=== PATIENT | male | born 1955 | race Caucasian/White ===

== ENCOUNTER → 2021-05-05 09:44 | Outpatient (CLI) | payer MEDICARE, SELFPAY | PROVIDERS: Visit Provider Urology | DX: R97.20 Elevated prostate specific antigen [PSA] (principal); Z01.812 Encounter for preprocedural laboratory examination; Z11.52 Encounter for screening for COVID-19 | CPT/HCPCS: C9803; U0003; U0005 ==

== ENCOUNTER 2021-05-08 07:25 | Day surgery (SDC) | payer MEDICARE, SELFPAY ==
[2021-04-28 10:22] VITALS: BMI 22.3
[2021-05-08 07:51] VITALS: BP 128/80; PULSE 66; RESP 18; TEMP 36.4; O2SAT 98
--- NOTE | 2021-05-08 08:49 | HMH.ANESCL ---
[facility] Anesthesia Checklist - Patient Identification Patient Identification: Arm Band - Structural Data Admitted From: Home Planned Operative Procedure/s: Prostate bx Consent for Planned Operative Procedure(s) Verified: Yes - NPO Status Verified Time NPO: 00:00 - Additional verifications Anesthesia Reactions: No Hx Blood Transfusions: Yes (1973) Blood Transfusion Reaction: No - Airway Assessment C-Spine Mobility Assessed: Yes TMJ Mobility Assessed: Yes Dentition: Good Dentition - Neurological Assessment Level of Consciousness: Awake Hx Seizures: No Numbness or tingling in extremities: No - Anesthesia Plan Anesthesia Risk discussed: Yes Anesthesia Plan: Verified ASA Class: II Anesthesia Type: MAC [facility] History I have reviewed the patient's past medical history: Yes Medical History: Reports:: Asthma, Hyperlipidemia Denies:: Cancer, Diabetes Mellitus Type 1, Diabetes Mellitus Type 2, Internal Pacemaker, MRSA, Seizures *Have you ever received a pneumonia vaccine?: No *Have you received a flu vaccine this season?: No Other Medical History: Reports: Anemia, Arthritis, Hypothyroidism, Thyroid Disease. Denies: Blood Transfusion Reaction Anesthesia experience/problems:: None Other Surgeries: Yes: No Previous Surgery, Colonoscopy. No: Pacemaker Amputation: No Fractures: No - *Social History Last grade of school completed: Advanced degree Smoking Status: Never smoker Alcohol Intake: never Substance Use Type: denies use *Occupational Status:: employed Housing: house Household Members: spouse *Travel in the last 8 weeks: Inside the [place] Family Hx:: No significant family history
[2021-05-08 10:22] VITALS: BP 112/58; PULSE 72; RESP 18; TEMP 36.1; O2SAT 97
[2021-05-08 10:35] VITALS: BP 103/60; PULSE 68; RESP 18; O2SAT 95
[2021-05-08 10:50] VITALS: BP 115/63; PULSE 68; RESP 18; O2SAT 98
[2021-05-08 11:05] VITALS: BP 136/86; PULSE 51; RESP 18; O2SAT 99
[2021-05-08 11:20] VITALS: BP 132/60; PULSE 52; RESP 18; TEMP 36.3; O2SAT 98
--- NOTE | 2021-05-08 16:44 | HMH.OPNOTE ---
Date of procedure: 05/08/21 Pre-op Diagnosis:: Elevated PSA Post-op Diagnosis:: Elevated PSA Procedure performed:: Transrectal ultrasound with prostate biopsies Surgeon:: Aristeo Tapia MD FILM PROCESSING SUPERVISOR:: Sophy Stinson Anesthesia: MAC Estimated blood loss (mL): 5 Clinical Note:: 65-year-old white male with recent PSA elevation to 9. He presents for prostate biopsy today. He did perform preoperative oral antibiotics and enema. Operative findings:: Prostate was measured at 17 cm?. There is no evidence of hypoechoic or hyperechoic lesions. No biopsies were obtained. Operative note:: Patient taken to the operating room after informed consent was obtained. On the stretcher monitored anesthesia care was administered. Patient was placed into the left lateral decubitus position. He had performed preoperative oral antibiotics and enema. The transrectal ultrasound probe was placed into the rectum and the prostate was visualized easily. It was measured at 16.75 cm?. Local anesthesia was placed into each neurovascular bundle. There was no evidence of hypoechoic or hyperechoic lesions. 12 biopsies then obtained in the systematic fashion. There was a little bleeding from the rectum after the probe was removed. A tampon was placed into the rectum tamponade purposes. Patient tolerated procedure well. Condition: stable Disposition: same day Specimens:: Prostate biopsy x12 Complications:: None
== END 2021-05-08 11:20 | disposition home or self-care (01) ==
LOC: OR 07:28
PROVIDERS: PCP Family Medicine; Visit Provider Urology
DX: R97.20 Elevated prostate specific antigen [PSA] (principal); J45.909 Unspecified asthma, uncomplicated; E78.5 Hyperlipidemia, unspecified; D64.9 Anemia, unspecified; M19.90 Unspecified osteoarthritis, unspecified site; E03.9 Hypothyroidism, unspecified; Z79.899 Other long term (current) drug therapy
CPT/HCPCS: 55700; 88300; 88305; 96374

== ENCOUNTER → 2021-05-26 08:22 | Outpatient (CLI) | payer MEDICARE, SELFPAY ==
--- NOTE | 2021-05-26 08:22 | CT_ITS ---
PROCEDURE INFORMATION: Exam: CT Abdomen And Pelvis Without And With Contrast Exam date and time: 05/26/2021 8:22 AM Age: 65 years old Clinical indication: Condition or disease; Other: Prostrate cancer; Additional info: Prostate cancer TECHNIQUE: Imaging protocol: Computed tomography of the abdomen and pelvis without and with contrast. Radiation optimization: All CT scans at this facility use at least one of these dose optimization techniques: automated exposure control; mA and/or kV adjustment per patient size (includes targeted exams where dose is matched to clinical indication); or iterative reconstruction. Contrast material: ISOVUE; Contrast volume: 75 ml; Contrast route: INTRAVENOUS (IV); COMPARISON: No relevant prior studies available. FINDINGS: Diaphragm: There is a small hiatal hernia. The stomach is otherwise normal in appearance. Liver: The liver is normal in appearance, without evidence of mass or intrahepatic bile duct dilatation. Gallbladder and bile ducts: There are several gallstones in the dependent portion of the gallbladder. Pancreas: The pancreas is normal in appearance, without evidence of mass, cyst, peripancreatic inflammatory change, or pancreatic duct dilatation. Spleen: There are multiple calcified granulomas in the spleen. Adrenal glands: Both adrenal glands are normal in appearance, without evidence of mass or focal abnormality. Kidneys and ureters: Both kidneys are normal in appearance, without evidence of nephrolithiasis or hydronephrosis. Stomach and bowel: The small bowel is normal in appearance, without evidence of wall thickening, perienteric inflammatory change, or small bowel obstruction. The terminal ileum and cecum are within normal limits. Appendix: No evidence of appendicitis. Intraperitoneal space: Unremarkable. No free air. No significant fluid collection. Vasculature: Unremarkable. No abdominal aortic aneurysm. Lymph nodes: Unremarkable. No enlarged lymph nodes. Urinary bladder: Unremarkable as visualized. Reproductive: Unremarkable as visualized. Bones/joints: There is multilevel lumbar spondylosis. Soft tissues: Unremarkable. IMPRESSION: 1. No acute findings. 2. Cholelithiasis, without evidence of acute cholecystitis. 3. Small hiatal hernia.
[2021-05-26 09:09] LABS: Blood Urea Nitrogen 22 mg/dl (9-20); Estimated Glomerular Filt Rate 67 ml/min (>60); GFR (African American) 81 ML/MIN (>60)
== END ==
PROVIDERS: PCP Family Medicine; Visit Provider Urology
DX: C61 Malignant neoplasm of prostate (principal)
CPT/HCPCS: 36415; 74178; 82565; 84520; Q9967

== ENCOUNTER → 2021-06-05 08:40 | Outpatient (CLI) | payer MEDICARE, SELFPAY ==
--- NOTE | 2021-06-05 08:40 | NM_ITS ---
PROCEDURE: NM BONE SCAN WHOLE BODY CLINICAL INDICATION: prostate cancer COMPARISON: No exams were available for comparison FINDINGS: Dose: 26.2 mCi technetium MDP Anterior and posterior images are obtained of the entire skeleton. Degenerative activity is present in the shoulders, wrists, knees, feet and ankles. Increased activity also noted involving the facet region on the left at C5 and C7. No other abnormal areas of activity apparent. IMPRESSION: No convincing evidence of skeletal metastatic disease. Dictated by: Manny Hung MD 06/06/2021 09:04 Manny Hung MD in OV 06/06/2021 09:04
== END ==
PROVIDERS: PCP Family Medicine; Visit Provider Urology
DX: C61 Malignant neoplasm of prostate (principal)
CPT/HCPCS: 78306; A9503

== ENCOUNTER → 2021-06-19 11:45 | Outpatient (CLI) | payer MEDICARE, SELFPAY | PROVIDERS: PCP Family Medicine; Visit Provider Urology | DX: C61 Malignant neoplasm of prostate (principal); Z01.812 Encounter for preprocedural laboratory examination; Z11.52 Encounter for screening for COVID-19; Z12.11 Encounter for screening for malignant neoplasm of colon | CPT/HCPCS: C9803; U0003; U0005 ==

== ENCOUNTER 2021-06-21 07:57 | Day surgery (SDC) | payer MEDICARE, SELFPAY ==
[2021-06-16 09:51] VITALS: BMI 22.3
[2021-06-21 08:28] VITALS: BP 130/84; PULSE 76; RESP 16; TEMP 36.6; O2SAT 100
--- NOTE | 2021-06-21 08:52 | HMH.ANESCL ---
[facility] Anesthesia Checklist - Patient Identification Patient Identification: Arm Band - Structural Data Admitted From: Home Planned Operative Procedure/s: Colonoscopy Consent for Planned Operative Procedure(s) Verified: Yes - NPO Status Verified Time NPO: 05:30 (Prep) - Additional verifications Anesthesia Reactions: No Hx Blood Transfusions: Yes (1973) Blood Transfusion Reaction: No - Airway Assessment C-Spine Mobility Assessed: Yes TMJ Mobility Assessed: Yes Dentition: Good Dentition - Neurological Assessment Level of Consciousness: Awake Hx Seizures: No Numbness or tingling in extremities: No - Anesthesia Plan Anesthesia Risk discussed: Yes Anesthesia Plan: Verified ASA Class: II Anesthesia Type: MAC [facility] History I have reviewed the patient's past medical history: Yes Medical History: Reports:: Asthma, Cancer (prostate), Hyperlipidemia Denies:: Diabetes Mellitus Type 1, Diabetes Mellitus Type 2, Internal Pacemaker, MRSA, Seizures *Have you ever received a pneumonia vaccine?: No *Have you received a flu vaccine this season?: No Other Medical History: Reports: Anemia, Arthritis, Hypothyroidism, Thyroid Disease. Denies: Blood Transfusion Reaction Anesthesia experience/problems:: None Other Surgeries: Yes: No Previous Surgery, Colonoscopy. No: Pacemaker Amputation: No Fractures: No - *Social History Last grade of school completed: Some college Smoking Status: Never smoker Alcohol Intake: never Substance Use Type: denies use *Occupational Status:: employed Housing: house Household Members: spouse *Travel in the last 8 weeks: None Family Hx:: No significant family history
[2021-06-21 09:13] VITALS: O2SAT 97
[2021-06-21 09:33] VITALS: BP 130/80; PULSE 76; RESP 14; TEMP 36.1; O2SAT 96
--- NOTE | 2021-06-21 09:42 | HMH.SCOPE ---
- Procedure: Date: 06/21/21 Patient Date of :: 1955 Procedure Performed:: Colonosocpy Indications:: The patient is a 65 year old male who is here for screening colonoscopy. His last colonoscopy is reported to be approximately 8-9 years ago. No prior history of colon polyps. He has a recent diagnosis of prostate cancer and is to have cyber knife treatment. Performing Provider:: Sven Hernandez MD Referring Provider:: Brant Henderson MD Sedation:: Se As per anesthesia records Procedure:: After placing the patient in the left lateral decubitus position, the colonoscopy was gently inserted into the rectum and under direct visualization advanced to the cecum which was identified by transillumination in the right lower quadrant, identification of the ileocecal valve, appendiceal orifice, and cecal strap. Color, texture, mucosa, and anatomy of the colon were carefully examined with the scope. Findings:: Anal canal: normal Rectum: normal Sigmoid colon: normal without polyps or inflammatory changes Descending colon: normal without polyps or inflammatory changes Splenic flexure: normal Transverse colon: normal without polyps or inflammatory changes Hepatic flexure: normal Ascending colon: normal without polyps or inflammatory changes Cecum: normal Terminal ileum: not visualized Recommendations:: Repeat colonoscopy in 10 years or sooner if clinically indicated Complications:: None Estimated blood obtained (mL): 0
[2021-06-21 09:43] VITALS: BP 126/75; PULSE 62; RESP 16; O2SAT 97
[2021-06-21 09:53] VITALS: BP 116/76; PULSE 75; RESP 18; O2SAT 97
--- NOTE | 2021-06-21 10:13 | SUR.PHASEII ---
Dr. Hernandez in w/ patient at this time
[2021-06-21 10:20] VITALS: BP 119/75; PULSE 72; RESP 18; O2SAT 97
== END 2021-06-21 10:20 | disposition home or self-care (01) ==
LOC: OUTP 07:58
PROVIDERS: PCP Family Medicine; Visit Provider Internal Medicine
PROC: 0DJD8ZZ Inspection of Lower Intestinal Tract, Via Natural or Artificial Opening Endoscopic (ICD-10-PCS; CPT 45378; principal; 2021-06-21 09:00)
DX: Z12.11 Encounter for screening for malignant neoplasm of colon (principal); Z85.46 Personal history of malignant neoplasm of prostate; J45.909 Unspecified asthma, uncomplicated; E78.5 Hyperlipidemia, unspecified; D64.9 Anemia, unspecified; E03.9 Hypothyroidism, unspecified; Z79.899 Other long term (current) drug therapy
CPT/HCPCS: G0121

== ENCOUNTER → 2021-08-02 13:12 | Outpatient (CLI) | payer MEDICARE, SELFPAY | PROVIDERS: Visit Provider Urology | DX: C61 Malignant neoplasm of prostate (principal); Z01.812 Encounter for preprocedural laboratory examination; Z11.52 Encounter for screening for COVID-19 | CPT/HCPCS: C9803; U0003; U0005 ==

== ENCOUNTER 2021-08-04 07:28 | Day surgery (SDC) | payer MEDICARE, SELFPAY ==
[2021-07-31 10:10] VITALS: BMI 22.3
[2021-08-04] VITALS (9 sets, daily range): BP systolic 112–138; BP diastolic 67–89; PULSE 50–89; RESP 16–18; TEMP 36.2–36.6; O2SAT 94–99
--- NOTE | 2021-08-04 09:25 | HMH.ANESCL ---
[facility] Anesthesia Checklist - Patient Identification Patient Identification: Arm Band - Structural Data Admitted From: Home Planned Operative Procedure/s: Transrectal ultrasound Consent for Planned Operative Procedure(s) Verified: Yes - NPO Status Verified Time NPO: 00:00 - Additional verifications Anesthesia Reactions: No Hx Blood Transfusions: Yes (1973) Blood Transfusion Reaction: No - Airway Assessment C-Spine Mobility Assessed: Yes TMJ Mobility Assessed: Yes Dentition: Good Dentition - Neurological Assessment Level of Consciousness: Awake Hx Seizures: No Numbness or tingling in extremities: No - Anesthesia Plan Anesthesia Risk discussed: Yes Anesthesia Plan: Verified ASA Class: II Anesthesia Type: MAC [facility] History I have reviewed the patient's past medical history: Yes Medical History: Reports:: Asthma (Seasonal), Cancer (prostate), Hyperlipidemia Denies:: Diabetes Mellitus Type 1, Diabetes Mellitus Type 2, Internal Pacemaker, MRSA, Seizures *Have you ever received a pneumonia vaccine?: No *Have you received a flu vaccine this season?: No Other Medical History: Reports: Anemia, Arthritis, Hypothyroidism, Thyroid Disease. Denies: Blood Transfusion Reaction Anesthesia experience/problems:: None Other Surgeries: Yes: No Previous Surgery, Colonoscopy. No: Pacemaker Amputation: No Fractures: No - *Social History Last grade of school completed: High school graduate Smoking Status: Never smoker Alcohol Intake: never Substance Use Type: denies use *Occupational Status:: employed Housing: house Household Members: spouse, family *Travel in the last 8 weeks: None Family Hx:: No significant family history
--- NOTE | 2021-08-04 15:29 | P.OP_ITS ---
Date of procedure: 08/04/21 Pre-op Diagnosis:: Prostate cancer Post-op Diagnosis:: Prostate cancer Procedure performed:: Placement of gold seed fiducials with transrectal ultrasound guidance Surgeon:: Aristeo Tapia MD ONLINE ADVERTISING DIRECTOR:: Sophy Stinson Anesthesia: MAC Estimated blood loss (mL): 0 Clinical Note:: 65-year-old white male with recently diagnosed prostate cancer has opted for CyberKnife therapy. He returns today for placement of gold seed fiducial's prior to the CyberKnife. Operative findings:: Prostate easily visualized and seeds placed without difficulty. Operative note:: Patient taken to the operating suite after informed consent was obtained. He had been on preoperative antibiotics. He was placed into the left lateral decubitus position and monitored anesthesia care administered. After adequate analgesia the transrectal ultrasound probe placed into the rectum and the prostate was easily visualized. Local anesthetic was placed into each neurovascular bundle and for gold fiducial was then placed. One at the left lateral base 1 at the right lateral base 1 at the left apex and one at the right apex. There was good placement of fiducials. Patient tolerated procedure well no complications. Condition: stable Disposition: same day Specimens:: None Complications:: None
== END 2021-08-04 11:15 | disposition home or self-care (01) ==
LOC: OR 07:29
PROVIDERS: PCP Family Medicine; Visit Provider Urology
DX: C61 Malignant neoplasm of prostate (principal); J45.909 Unspecified asthma, uncomplicated; E78.5 Hyperlipidemia, unspecified; D64.9 Anemia, unspecified; M19.90 Unspecified osteoarthritis, unspecified site; E03.9 Hypothyroidism, unspecified
CPT/HCPCS: 55876; 76942

== ENCOUNTER → 2021-12-19 10:57 | Outpatient (CLI) | payer MEDICARE, SELFPAY ==
[2021-12-19 12:34] LABS: Prostate Specific Ag, Diagnost 4.46 ng/ml (0.0-4.0)
== END ==
PROVIDERS: PCP Family Medicine; Visit Provider Urology
DX: Z85.46 Personal history of malignant neoplasm of prostate (principal)
CPT/HCPCS: 36415; 84153

== ENCOUNTER → 2023-01-03 10:11 | Outpatient (CLI) | payer MEDICARE, SELFPAY ==
--- NOTE | 2023-01-03 10:23 | XR_ITS ---
FINAL REPORT CLINICAL HISTORY: Pt injured Rt wrist x 5 mos ago, hand wrapped in leash jerked by horse. Pain in 5th digit. FINDINGS: RIGHT HAND SERIES Four views of the right hand were obtained. There is no acute fracture or dislocation. There are postoperative changes of arthrodesis of the wrist and carpal joints. There are diffuse degenerative changes. There is no soft tissue abnormality. IMPRESSION: No acute abnormality. Reviewed, Interpreted and Dictated by Grant Fraser MD Transcribed by Gurdeep Nam Authenticated and [facility]
== END ==
PROVIDERS: PCP Family Medicine; Visit Provider Family Medicine
DX: M25.531 Pain in right wrist (principal); S69.91XA Unspecified injury of right wrist, hand and finger(s), initial encounter
CPT/HCPCS: 73130